=== PATIENT | female | born 1970 | race Caucasian/White ===

== ENCOUNTER → 2019-08-12 | Outpatient (CLI) | payer MEDICARE, BC | LOC: MHCPAIN 10:11 | DX: M47.817 Spondylosis without myelopathy or radiculopathy, lumbosacral region (principal); M54.16 Radiculopathy, lumbar region | CPT/HCPCS: G0463 ==

== ENCOUNTER → 2019-08-21 | Outpatient (CLI) | payer MEDICARE, BC | LOC: MHCPAIN 14:54 | DX: M54.16 Radiculopathy, lumbar region (principal) | CPT/HCPCS: J1100; Q9967 ==